=== PATIENT | female | born 1960 | race Caucasian/White ===

== ENCOUNTER 2018-04-16 12:07 | Emergency (ER) | payer BC ==
[2018-04-16 12:20] VITALS: BP 109/52
--- NOTE | 2018-04-16 12:44 | UC ---
Shoulder Pain HPI - HPI Summary HPI Summary: 57 y/o female presents to the urgent care c/o left shoulder pain s/p injury i month ago. Pt has been doing physical therapy for her shoulder. She has been managed by Dr Alvarado. 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 Pt states she is experiencing a flare up on her Rt shoulder s/p a heavy lifting about 2 weeks ago. She has been taking her pain medications. But last night pain worsen. Today is 8/10 sharp w/ movement and unable to lift her left shoulder. She requests a Toradol IM inj since last flare up her pain was alleviated by this inj. Pt denies fever, numbness or tingling sensation over the left arm, SOB, chest pain, abdominal pain, N/V/D. - History of Current Complaint Chief Complaint: UCUpperExtremity Stated Complaint: SHOULDER PAIN Time Seen by Provider: 04/16/18 12:25 Hx Obtained From: Patient ?: No - Menopausal Onset/Duration: Gradual Onset, Lasting Weeks - 1 year ago, Still Present, Worse Since - yesterday Timing: Constant Severity Initially: Mild Severity Currently: Moderate Location Of Pain: Is Discrete @ - left shoulder, Radiates To - elbow Pain Intensity: 8 Pain Scale Used: 0-10 Numeric Character: Sharp, Spasmodic Aggravating Factor(s): Movement, Lifting, Abduction Alleviating Factor(s): Rest, OTC Meds - ibuprofen PO, Other - pt has been taking also [place] Associated Signs And Symptoms: Positive: Negative, Numbness/Tingling - on left upper arma dn left shoulder. 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 bunionectomies - bilateral. partial hysterectomy 2009 - Family History Known Family History: Positive: Cardiac Disease, Diabetes Family History: Dyslipidemia - Social History Occupation: Disabled Lives: With Family Alcohol Use: None Substance Use Type: None Smoking Status (MU): Never Smoked Tobacco Review of Systems All Other Systems Reviewed And Are Negative: Yes Constitutional: Positive: Negative Skin: Positive: Negative Eyes: Positive: Negative ENT: Positive: Negative Respiratory: Positive: Negative Cardiovascular: Positive: Negative Gastrointestinal: Positive: Negative Genitourinary: Positive: Negative Motor: Positive: Negative Neurovascular: Positive: Negative Musculoskeletal: Positive: Decreased ROM - left shoulder, Other: - left shoulder pain Neurological: Positive: Numbness - left shoulder Psychological: Positive: Negative Is Patient Immunocompromised?: No Physical Exam - Summary Physical Exam Summary: Vital Signs Reviewed: Yes GENERAL: Well-Appearing, No Pain Distress, Well-Nourished female w/o any apparent pain distress Eyes: Positive: Conjunctiva Clear - PERRL,EOMI ENT: Positive: Normal ENT inspection, Hearing grossly normal, Pharyngeal erythema - mild, Nasal drainage - clear, Uvula midline Neck: Positive: Supple, Nontender, No Lymphadenopathy Respiratory: Positive: Chest non-tender, Lungs clear, Normal breath sounds, No respiratory distress Cardiovascular: Positive: RRR, No Murmur, Pulses Normal, Brisk Capillary Refill Abdomen Description: Positive: Nontender, No Organomegaly, Soft. Negative: CVA Tenderness (R), CVA Tenderness (L) Bowel Sounds: Positive: Present Musculoskeletal: LF shoulder: The L shoulder is without obvious asymmetry or deformity when compared to the R shoulder. No ecchymosis or bruising, no crepitus. No bony deformity or prominence of humeral head. No erythema, warmth , . No Point Tenderness to palpation over the clavicle, or scapula. positive tenderness over Acromioclavicular joint and humeral head with mild swelling, NT to palpation of the bicipital groove . NT to palpation of the muscles of the sternocleidomastoid, pectoralis, biceps/triceps, deltoid, trapezius, . Limited ROM due to pain especially in adduction and abduction.on both passive and active, internal/external rotation, flexion/extension. "empty can and drop arm test unable to perform due to pain. No axillary tenderness or lymphadenopathy. Normal sensation over the deltoid and fingers. Distal motor and neurovascular status is intact. Neurological Exam: Normal Psychological Exam: Normal Skin Exam: Normal Triage Information Reviewed: Yes Vital Signs: Initial Vital Signs Temp 96.6 F 04/16/18 12:16 Pulse 73 04/16/18 12:16 Resp 18 04/16/18 12:16 BP 109/52 04/16/18 12:16 Pulse Ox 99 04/16/18 12:16 Shoulder Course/Dx - Course Course Of Treatment: 57 y/o female presents to the urgent care c/o left shoulder pain s/p injury i month ago. Pt has been doing physical therapy for her shoulder. She has been managed by Dr Alvarado. 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 Pt states she is experiencing a flare up on her Rt shoulder s/p a heavy lifting about 2 weeks ago. She has been taking her pain medications. But last night pain worsen. Today is 8/10 sharp w/ movement and unable to lift her left shoulder. She requests a Toradol IM inj since last flare up her pain was alleviated by this inj. Pt denies fever, numbness or tingling sensation over the left arm, SOB, chest pain, abdominal pain, N/V/D. Hx obtained. LF shoulder X-ray ordered: Impression: No acute osseous injury observed. Pt probably w/ a Tendonitis. Pt's given a Toradol IM inj by the nurse. pt tolerated well IM inj and pain decrease after 20 min. Shoulder immobilized with a shoulder sling for 2-3 days. Advised to f/u with his PT and Orthopedic DR Alvarado for further management. instructions explained. Pt understood and agreed w/ plan of care. - Differential Dx/Diagnosis Differential Diagnosis/HQI/PQRI: AC Separation, Arthritis, Dislocation, Rotator Cuff Injury, Sprain, Strain, Tendonitis Provider Diagnosis: Left shoulder pain, Tendonitis of shoulder Discharge - Sign-Out/Discharge Documenting (check all that apply): Patient Departure - D/c home All imaging exams completed and their final reports reviewed: Yes - Discharge Plan Condition: Stable Disposition: HOME Patient Education Materials: Tendinitis (ED) Referrals: Kendra Summers MD [Primary Care Provider] - 3 Days Additional Instructions: 1-Please continue taking the Ibuprofen and [place] you have at home as directed by your PCP to alleviate pain and swelling. 2-Please apply ice, keep your shoulder immobilized with the shoulder sling for 3-4 days and then resume movement slowly 3- Please f/u with your appt Orthopedic DR Alvarado 04/23/2018 for further evaluation and treatment. - Billing Disposition and Condition Condition: STABLE Disposition: Home - Attestation Statements Provider Attestation: I was available for consult. This patient was seen by the ANY. The patient was not presented to, seen by, or examined by me. -Nelli
[2018-04-16] MEDS ORDERED: Ketorolac INJ* 30 MG/ML 1 ML VIAL IM ONE (12:56)
== END 2018-04-16 13:40 | disposition home or self-care (01) ==
LOC: UCEAST 12:07
DX: M25.512 Pain in left shoulder (principal); M75.92 Shoulder lesion, unspecified, left shoulder
CPT/HCPCS: 96372; 99212; G0463; J1885